=== PATIENT | female | born 1995 | race Caucasian/White ===

== ENCOUNTER 2022-12-21 18:42 | Outpatient (CLI) | payer BC ==
--- NOTE | 2022-12-22 12:08 | Ultrasound Report ---
PROCEDURE: OB Detailed Eval INDICATIONS: SUPERVISION OF OUTSIDE/PRIOR DATING DATA: Last menstrual period (LMP): 07/31/2022. LMP-based estimated date of delivery (FRANCO): 05/07/2023. First dating scan (date and location): 10/11/2022. Estimated date of delivery (FRANCO) from first dating scan: 05/04/2023. The below data below was generated using the working FRANCO of 05/04/2023 TECHNIQUE: Real-time scanning was performed of the fetus, with image documentation and biometric measurements. Endovaginal scanning: None COMPARISON: None. FINDINGS: General: A single living intrauterine gestation is present. Presentation: Breech Placenta: Placental position is posterior/fundal, without previa. Amniotic fluid index: 14.1 cm, normal for gestational age. heart rate: 152 beats per minute. Maternal cervical canal: 5.3 cm long; normal length is 2.5 cm or more. biometrics: Biparietal diameter: 4.7 cm, 20 week 1 day Head circumference: 18.1 cm, 20 week 4 day Abdominal circumference: 17.1 cm, 22 week 1 day Femur length: 3.2 cm, 20 week 1 day Estimated gestational age from initial scan: 20 week 6 day Composite gestational age from present scan: 20 week 4 day Estimated weight and percentile: 399.9 g, 59th percentile Measurement variability in biometric dating: +/- 10 days from 12-20 weeks gestation, +/- 2 weeks from 20-30 weeks gestation, +/- 3 weeks at 30 weeks gestation or later. Anatomic survey: Neuro: Ventricles are normal at less than 10 mm. Cisterna magna is normal at 3-11 mm. Cerebellum i s normal in size and morphology. Nuchal skin fold: Normal at less than 6 mm between 14 and 20 weeks gestational age. Face: Nose and lips, facial profile are normal. Spine: No evidence for spina bifida. Heart: 4-chambered heart is present, with normal ventricular outflow tracts. Diaphragm: Diaphragm is intact. Stomach: Left-sided stomach is present. Kidneys: No hydronephrosis. Normal is less than 5 mm in 2nd trimester, less than 7 mm in 3rd trimester. Cord: 3 vessel cord has orthotopic insertion. Bladder: Normal in size. Extremities: All 4 extremities are visualized. IMPRESSION: Single live intrauterine consistent with 20 week 4 day gestation Reviewed by: Pierre Rader MD on 12/22/2022 11:06 AM CHUCKIE Approved by: Pierre Rader MD on 12/22/2022 11:06 AM CHUCKIE Station ID: [id number]
== END 2022-12-21 18:43 | disposition home or self-care (01) ==
LOC: DI 18:42
PROVIDERS: ATTEND Nurse Practitioner Obstetrics & Gynecology
DX: Z34.00 Encounter for supervision of normal first pregnancy, unspecified trimester (principal); Z3A.20 20 weeks gestation of pregnancy